=== PATIENT | male | born 1950 | race Two or more races ===

== ENCOUNTER → 2017-12-06 09:03 | Outpatient (CLI) | payer MEDICARE ==
[2017-10-27 04:23] VITALS: BMI 25.1
[~2017-12-06 09:03] MED LIST: BAYER CHEWABLE81 MG PO; GLUCOPHAGE500 MG PO; PRINIVIL20 MG PO; TIROSINT88 MCG PO
== END | disposition home or self-care (01) ==
LOC: D.CT 09:03
DX: I63.312 Cerebral infarction due to thrombosis of left middle cerebral artery (principal); D33.2 Benign neoplasm of brain, unspecified; R56.1 Post traumatic seizures

== ENCOUNTER → 2018-01-02 08:44 | Outpatient (CLI) | payer MEDICARE ==
[2017-10-27 04:23] VITALS: BMI 25.1
== END | disposition home or self-care (01) ==
LOC: D.MRI 08:44
DX: I63.312 Cerebral infarction due to thrombosis of left middle cerebral artery (principal); R56.1 Post traumatic seizures; D33.2 Benign neoplasm of brain, unspecified

== ENCOUNTER 2020-01-12 19:44 | Emergency (ER) | payer MEDICARE ==
[~2020-01-12] VITALS: Ht 172.7 cm; Wt 77.3 kg
[~2020-01-12 19:44] MED LIST changes: -KEPPRA500 MG PO
[2020-01-12 19:49] VITALS: Ht 172.7 cm; Wt 77.3 kg
[2020-01-12 20:32] LABS: BASOPHILS 0.2 % (0-2); EOSINOPHILS 0.1 % (0-7); HEMATOCRIT 45.3 % (42.0-54.0); HEMOGLOBIN 16.1 g/dL (13.5-17.5); IMMATURE GRANULOCYTES 0.2 % (0-5); LYMPHOCYTES 2.8 % (15-50); MCH 32.1 pg (26.0-34.0); MCHC 35.5 g/dL (31.0-37.0); MCV 90.2 fL (80.0-100.0); MEAN PLATELET VOLUME 9.5 fL (7.4-10.4); MONOCYTES 4.5 % (2-11); NEUTROPHILS 92.2 % (40-80); PLATELET COUNT 208 10x3/uL (130-400); RBC 5.02 10x6/uL (4.20-6.10); RDW 12.5 % (11.5-14.5); WBC 12.7 10x3/uL (4.8-10.8)
[2020-01-12 20:36] LABS: BILIRUBIN NEGATIVE (NEGATIVE); GLUCOSE NEGATIVE (NEGATIVE); KETONE NEGATIVE (NEGATIVE); NITRITE NEGATIVE (NEGATIVE); SPECIFIC GRAVITY 1.025 (1.005-1.020); UROBILINOGEN NORMAL (NORMAL)
[2020-01-12 20:40] LABS: BACTERIA FEW /hpf (NEGATIVE); RED CELLS - URINE 0-5 /hpf (0-5); WHITE CELLS - URINE 0-5 /hpf (NEGATIVE)
[2020-01-12 20:43] LABS: CALC OSMOLALITY 275 mosm/kg (275-300); CALCIUM 8.6 mg/dL (8.5-10.1); CARBON DIOXIDE 25.8 mmol/L (21.0-32.0); CHLORIDE - SERUM 100 mmol/L (98-107); GLUCOSE 125 mg/dL (74-106); POTASSIUM - SERUM 4.1 mmol/L (3.5-5.1); SODIUM 138 mmol/L (136-145); UREA NITROGEN 11 mg/dL (7-18); eGFR NON AFRICAN AMERICAN 79 mL/min (90-120)
[2020-01-12 20:43] LABS: UDS - AMPHET NEGATIVE QUAL (NEGATIVE); UDS - BARB NEGATIVE QUAL (NEGATIVE); UDS - BENZO NEGATIVE QUAL (NEGATIVE); UDS - COCAINE NEGATIVE QUAL (NEGATIVE); UDS - OPIATE NEGATIVE QUAL (NEGATIVE); UDS - PCP NEGATIVE QUAL (NEGATIVE); UDS - THC POSITIVE QUAL (NEGATIVE)
[2020-01-12 20:49] LABS: ALBUMIN 4.4 g/dL (3.4-5.0); ALKALINE PHOSPHATASE 76 U/L (30-120); ALT (SGPT) 36 U/L (10-68); BILIRUBIN - TOTAL 0.59 mg/dL (0.2-1.3); PROTEIN - SERUM 7.6 g/dL (6.4-8.2)
[2020-01-12] MEDS ORDERED: KEPPRA500 MG PO (22:09)
[2020-01-12 23:52] VITALS: BP 124/73
== END 2020-01-12 23:52 | disposition home or self-care (01) ==
LOC: D.ER 19:44
PROVIDERS: Family Medicine
DX: R56.9 Unspecified convulsions (principal); Z91.19 Patient's noncompliance with other medical treatment and regimen; E11.9 Type 2 diabetes mellitus without complications; E07.9 Disorder of thyroid, unspecified; I10 Essential (primary) hypertension; Z79.84 Long term (current) use of oral hypoglycemic drugs

== ENCOUNTER → 2020-01-12 | Emergency (ER) | payer MEDICARE ==
[~2020-01-12] VITALS: Ht 170.2 cm; Wt 77.3 kg
[~2020-01-12] MED LIST changes: +AZELASTINE137 MCG/0. NASAL; +KEPPRA500 MG PO
[2020-01-12 13:05] VITALS: BP 149/76; Ht 170.2 cm; Wt 77.3 kg
[2020-01-12 13:33] LABS: BASOPHILS 0.3 % (0-2); EOSINOPHILS 0.6 % (0-7); HEMATOCRIT 48.2 % (42.0-54.0); HEMOGLOBIN 16.8 g/dL (13.5-17.5); IMMATURE GRANULOCYTES 0.3 % (0-5); LYMPHOCYTES 4.5 % (15-50); MCH 31.7 pg (26.0-34.0); MCHC 34.9 g/dL (31.0-37.0); MCV 90.9 fL (80.0-100.0); MEAN PLATELET VOLUME 9.6 fL (7.4-10.4); MONOCYTES 3.3 % (2-11); PLATELET COUNT 201 10x3/uL (130-400); RDW 12.5 % (11.5-14.5)
[2020-01-12 13:56] LABS: CALC OSMOLALITY 272 mosm/kg (275-300); CALCIUM 8.8 mg/dL (8.5-10.1); CARBON DIOXIDE 28.3 mmol/L (21.0-32.0); CHLORIDE - SERUM 99 mmol/L (98-107); GLUCOSE 100 mg/dL (74-106); POTASSIUM - SERUM 3.6 mmol/L (3.5-5.1); SODIUM 137 mmol/L (136-145); UREA NITROGEN 10 mg/dL (7-18); eGFR NON AFRICAN AMERICAN 79 mL/min (90-120)
[2020-01-12 14:00] LABS: BILIRUBIN NEGATIVE (NEGATIVE); EPITHELIAL CELLS RARE /hpf (0-5); GLUCOSE NEGATIVE (NEGATIVE); KETONE NEGATIVE (NEGATIVE); NITRITE NEGATIVE (NEGATIVE); RED CELLS - URINE 0-5 /hpf (0-5); UROBILINOGEN NORMAL (NORMAL); WHITE CELLS - URINE RARE /hpf (NEGATIVE)
[2020-01-12 14:01] LABS: BACTERIA NONE SEEN /hpf (NEGATIVE)
[2020-01-12 14:11] LABS: ALBUMIN 4.3 g/dL (3.4-5.0); ALKALINE PHOSPHATASE 80 U/L (30-120); ALT (SGPT) 31 U/L (10-68); BILIRUBIN - TOTAL 0.54 mg/dL (0.2-1.3); CKMB 6.2 U/L (0.0-3.6); CREATINE KINASE 662 UL (21-232); MAGNESIUM - SERUM 2.1 mg/dL (1.8-2.4); PROTEIN - SERUM 7.9 g/dL (6.4-8.2); THYROID STIMULATING HORMONE 5.67 uIU/mL (0.36-3.74); TROPONIN-I 0.052 ng/mL (0.000-0.060)
[2020-01-12 14:15] LABS: APTT 28.1 SECONDS (22.8-39.4); INR 1.01 (0.85-1.17); PROTIME 13.3 SECONDS (11.6-15.0)
== END ==
LOC: D.ER 12:59
PROVIDERS: Family Medicine
DX: G40.909 Epilepsy, unspecified, not intractable, without status epilepticus (principal); E11.9 Type 2 diabetes mellitus without complications; I10 Essential (primary) hypertension; E07.9 Disorder of thyroid, unspecified; Z79.84 Long term (current) use of oral hypoglycemic drugs; R55 Syncope and collapse